=== PATIENT | male | born 1990 | race Two or more races ===

== ENCOUNTER 2024-01-09 10:40 | Emergency (ER) | payer OTHER, SELFPAY ==
--- NOTE | 2024-01-09 11:04 | ED.EYEPROB ---
HPI - Eye Problem General Chief complaint: Eye Problems Stated complaint: rt eye irritation Time Seen by Provider: 01/09/24 11:10 Source: patient Mode of arrival: ambulatory Limitations: no limitations History of Present Illness HPI Narrative: 33 y/o male presented for c/o right eye pain, redness and blurred vision over the past few days. Reports some clear drainage/tearing today. States he has had this [place], and was prescribed Zypred steroid drop, which he is requesting refill. At that time he states the eye symptoms were associated with back pain, pt was advised to f/u with rheumatology, which he has not yet done. Denies eye injury, foreign body sensation, or contact lenses. Has not taken anything for symptoms. MD chief complaint: eye pain Related Data Home Medications Medication Instructions Recorded Confirmed No Home Medications 01/09/24 01/09/24 Allergies Allergy/AdvReac Type Severity Reaction Status Date / Time No Known Allergies Allergy Verified 01/09/24 11:09 Review of Systems Review of Systems: CONSTITUTIONAL: Denies body aches, fever, chills EYES:Endorses redness and pain, blurred vision, photophobia to right eye; denies FB sensation ENT: Denies rhinorrhea, congestion, sore throat, or otalgia. CARDIOVASCULAR: Denies chest pain, palpitations RESPIRATORY: Denies cough or dyspnea. GASTROINTESTINAL: Denies abdominal pain, nausea, vomiting, or diarrhea. SKIN: Denies rash, itching, or wounds. MUSCULOSKELETAL: Denies back pain, joint pain, or myalgia. NEUROLOGIC: Denies headache, numbness, tingling, or weakness. All systems reviewed & are unremarkable except as noted in HPI and below PMFSH Comments At time of signature, I have reviewed and agree with nursing past medical, surgical, social and family history unless otherwise noted. Please see nursing chart for further information. There is no relevant family history pertinent to the presenting complaint Exam Narrative: GENERAL: Well-appearing HEAD: Normocephalic, atraumatic. EYES: right conjunctival injection, photophobia, c/w uveitis. No eye lid swelling or drainage. PERRLA, EOMI. Lid eversion shows no FB ENT: Mucous membranes pink and moist. No rhinorrhea. TMs normal bilaterally. Throat normal. Uvula midline. CHEST: Clear to auscultation. HEART: Regular rate and rhythm. SKIN: Warm, dry, no rash. Normal skin turgor. NEURO: No focal deficits. Alert and oriented x3 PSYCH: Normal affect. Course Course Emergency Course: Patient is aware of diagnosis, understands and agrees to treatment plan. Anticipatory guidance given. Patient agrees to follow-up as directed and is aware of reasons to seek care at the emergency department. Portions of this record may have been created with voice recognition software Level of Care: Express Care Visit Vital Signs Vital signs: Vital Signs Temperature 98.0 F 01/09/24 11:08 Pulse Rate 96 01/09/24 11:08 Respiratory Rate 16 01/09/24 11:08 Blood Pressure 128/40 L 01/09/24 11:08 Pulse Oximetry 100 01/09/24 11:08 Oxygen Delivery Room Air 01/09/24 11:08 Temperature 98.0 F 01/09/24 11:09 Pulse Rate 96 01/09/24 11:09 Respiratory Rate 16 01/09/24 11:09 Blood Pressure 128/40 L 01/09/24 11:09 Pulse Oximetry 100 01/09/24 11:09 Oxygen Delivery Room Air 01/09/24 11:09 MDM - Eye Problem MDM Narrative Medical decision making narrative: Patient presented for complaint of red painful eye with blurred vision; most c/w uveitis. He is advised close follow-up with Ophthalmology, appointment was made for patient today at [facility] in [place]. Will defer Rx until pt is evaluated. He is advised to go to the ER if symptoms worsen prior to the eye appointment. Discussed physical exam findings. Advised supportive measures and signs/symptoms to go to the ER. Pt is appropriate for outpt treatment and f/u as scheduled. Differential Diagnosi
[2024-01-09 11:08] VITALS: BP 128/40; PULSE 96; RESP 16; TEMP 36.7; O2SAT 100
[2024-01-09 11:09] VITALS: BP 128/40; PULSE 96; RESP 16; TEMP 36.7; O2SAT 100
== END 2024-01-09 11:42 | disposition home or self-care (01) ==
PROVIDERS: Emergency Provider Nurse Practitioner Family
DX: H57.11 Ocular pain, right eye (principal)
CPT/HCPCS: 99202; G0463